=== PATIENT | female | born 2000 | race Caucasian/White ===

== ENCOUNTER 2023-08-14 15:07 | Emergency (ER) | payer BC, SELFPAY ==
--- NOTE | ~2023-08-14 | CT_ITS ---
EXAMINATION: CT abdomen pelvis w con DATE: 08/14/2023 16:44 INDICATION: Right lower quadrant abdominal pain, nausea and intermittent fever TECHNIQUE: Computed tomography (CT) of the abdomen and pelvis was performed with 100 mL Omnipaque-350 intravenous contrast. Automated exposure control and iterative reconstruction technique were employe d. The dose-length product was 286.89 mGy-cm. COMPARISON: None FINDINGS: Lung bases are clear. Visualized inferior heart appears normal. No pericardial or pleural effusion. L iver, gallbladder, pancreas, left kidney and bilateral adrenal glands are normal. There is urothelial enhancement at the right renal pelvis with few ill-defined regions of decreased cortical enhancement scattered throughout the right kidney consistent with ascending urinary tract infection and pyelonep hritis. A few splenic calcific lesions consistent with old granulomatous disease. Bowels including th e appendix are normal. There is diffuse mild bladder wall thickening which could be seen with cystiti s. T-shaped IUD in expected position within the retroverted, retroflexed uterus. 2.7 cm right adnexal cyst/follicle. Left adnexa is unremarkable. Small amount of likely physiologic free fluid in the cul -de-sac. No abscess or free intraperitoneal gas. Mild lumbar levoscoliosis with mild spondylosis. IMPRESSION: 1. Findings consistent with cystitis and right-sided ascending urinary tract infection with right humberto lonephritis. Correlate with urinalysis. 2. IUD in expected position. 3. 2.7 cm right adnexal cyst/follicle with small amount of likely physiologic free fluid in the cul-d e-sac. Reviewed, dictated and finalized at location A. AR[facility] [employer]ER IMPRESSION: 1. Findings consistent with cystitis and right-sided ascending urinary tract in fection with right pyelonephritis. Correlate with urinalysis. 2. IUD in expected position. 3. 2.7 cm right adnexal cyst/follicle with small amount of likely physiologic f ree fluid in the cul-de-sac.
[2023-08-14 15:09] VITALS: BP 119/64; PULSE 125; RESP 20; TEMP 38.1; O2SAT 99
--- NOTE | 2023-08-14 15:29 | ED.GENADULT ---
HPI - General Adult General Chief complaint: Abdominal Pain Stated complaint: abd pain Time Seen by Provider: 08/14/23 15:14 Source: patient Mode of arrival: ambulatory Limitations: no limitations History of Present Illness HPI narrative: This is a 23 year old female Who presents to the ED from urgent care with concern for right lower quadrant pain intermittently x3 days and worse today. Reports the pain seems to be primarily in the right lower quadrant and will radiate to the right flank occasion. Denies urinary symptoms or vaginal symptoms. does endorse nausea but denies vomiting. Denies any concern for STDs. Denies any abdominal surgical history. Denies chest pain, shortness of breath, cough, problems with bowel movements. Related Data Allergies Allergy/AdvReac Type Severity Reaction Status Date / Time No Known Allergies Allergy Verified 08/14/23 15:13 Review of Systems Review of Systems: All systems as dictated in HPI Exam Narrative: GENERAL: Well-appearing, well-nourished, and in no acute distress. HEAD: Normocephalic, atraumatic. EYES: PERRLA and EOMI. ENT: Nares clear, no rhinorrhea or epistaxis. Mucous membranes moist. Oropharynx without tonsillar hypertrophy exudate or other lesions. NECK: Supple. No adenopathy or masses. CHEST: No respiratory distress. Clear to auscultation. No wheezes rales or rhonchi HEART: tachycardic in the low 120s. Regular. No murmur heard. Normal peripheral pulses. ABDOMEN: Focal right lower quadrant tenderness. Mild guarding. Soft, nondistended, normal active bowel sounds. Negative rebound. Negative Michaels sign. MSK: Normal range of motion. No edema. SKIN: Warm, dry, no rash. NEURO: Alert and oriented x3. No focal deficits. PSYCH: Normal mood and affect. Course Course Emergency Course: re-evaluation 1700: Feeling much improved. Vitals have normalized. Vital Signs Vital signs: Vital Signs Temperature 100.6 F H 08/14/23 15:09 Pulse Rate 125 H 08/14/23 15:09 Respiratory Rate 20 08/14/23 15:09 Blood Pressure 119/64 08/14/23 15:09 Pulse Oximetry 99 08/14/23 15:09 Oxygen Delivery Room Air 08/14/23 15:09 Temperature 98.8 F 08/14/23 17:30 Pulse Rate 78 08/14/23 17:30 Respiratory Rate 16 08/14/23 17:30 Blood Pressure 118/68 08/14/23 17:30 Pulse Oximetry 100 08/14/23 17:30 Oxygen Delivery Room Air 08/14/23 15:09 Medical Decision Making MDM Narrative Medical decision making narrative: this is a 23-year-old female who presents to the ED with chief complaint Right lower quadrant pain and radiating from the right flank. Vitals show initial tachycardia and she is febrile to 100.6. Hemodynamically stable. Exam remarkable for the above. Lab work shows a normal white count. CMP is unremarkable. Lipase and lactic acid are normal. Urinalysis revealing for nitrite positive urine with 3+ leuks, greater than 100 whites and 4+ bacteria. CT abdomen pelvis with IV contrast: 1. Findings consistent with cystitis and right-sided ascending urinary tract infection with right pyelonephritis. Correlate with urinalysis. 2. IUD in expected position. 3. 2.7 cm right adnexal cyst/follicle with small amount of likely physiologic free fluid in the cul-de-sac.. Symptoms certainly consistent with UTI, right-sided pyelonephritis. She improved greatly with IV fluids, antiemetics and pain meds here. Rocephin was given here in the department. She is stable for discharge home, Tolerating PO. Prescription for cephalexin given. Prescriptions for [place] and Zofran given as well. Pt will be discharged in stable condition. Return precautions given and supportive measures discussed. Pt is understanding and agreeable with plan for discharge and follow-up with PCP. Vital Signs Vital Signs: Vital Signs Temperature 100.6 F H 08/14/23 15:09 Pulse Rate 125 H 08/14/23 15:09 Respiratory Rate 20 08/14/23 15:09 Blood Pressure
[2023-08-14] MEDS: ONDANSETRON INJ 4 MG/2 ML VIAL IV PUSH (15:56)
[2023-08-14] MEDS: MORPHINE SULFATE (*CRX) 4 MG/ML INJ IV PUSH (15:56)
[2023-08-14] MEDS: SODIUM CHLORIDE 0.9% IV 1,000 ML 999 ML IV CONT ×2 (15:57)
[2023-08-14 15:58] LABS: Basophils Percent Auto 0.3 % (0.2-1.2); Hematocrit 39.9 % (37.0-47.0); Hemoglobin 12.8 g/dL (12.0-15.0); Immature Granulocyte Absolute 0.01 K/mm3 (0.00-0.031); Immature Granulocyte Percent A 0.2 % (0-0.5); Lymphocytes Absolute Auto 0.75 K/mm3 (0.9-3.2); Lymphocytes Percent Auto 12.8 % (18.3-44.2); Mean Corpuscular HGB Conc 32.1 g/dl (32-36); Mean Corpuscular Hemoglobin 29.1 pg (26-34); Mean Corpuscular Volume 90.7 fl (80-100); Mean Platelet Volume 8.9 fl (7.4-10.4); Monocytes Absolute Auto 0.6 K/mm3 (0.1-0.6); Monocytes Percent Auto 9.9 % (2.6-8.5); Neutrophils Absolute Auto 4.5 K/mm3 (1.3-6.7); Neutrophils Percent Auto 76.8 % (45.5-73.1); Platelet Count Result 211 k/mm3 (150-375); Red Cell Distribution Width 12.2 % (11.5-14.5); White Blood Count 5.9 K/mm3 (4.5-10.0)
[2023-08-14 16:04] LABS: Appearance Urine Turbid (Clear); Bacteria Urine 4+ /hpf; Bilirubin Urine Negative (Negative); Blood Urine 2+ (Negative); Color Urine Yellow (Yellow); Glucose Urine UA Negative (Negative); Ketones Urine 2+ mg/dL (Negative); Leukocyte Esterase Ur 3+ LEU/UL (Negative); Nitrate Urine Positive (Negative); Non Pathogenic Casts 0-2; Protein Urine 2+ mg/dL (Negative); Specific Grav Ur 1.014 (1.001-1.035); Squamous Epithelial Cell Urine None seen /hpf (Few); Urobilinogen Urine 0.2 mg/dL (<2.0); WBC Urine >100 /hpf; pH Urine 5.5 (5.0-9.0)
[2023-08-14 16:07] VITALS: BP 126/78; PULSE 74; RESP 16; O2SAT 100
[2023-08-14 16:08] LABS: INR 1.1; Prothrombin Time 14.3 Seconds (11.1-14.7)
[2023-08-14 16:12] LABS: Add Urine Microscopic? YES
[2023-08-14 16:13] LABS: Alanine Aminotransferase 10 U/L (6-35); Albumin Level 4.3 g/dL (3.5-5.1); Alkaline Phosphatase 53 U/L (38-126); Anion Gap 8 mmol/L (8-16); Aspartate Amino Transferase 19 U/L (14-36); Bilirubin,Total 1.6 mg/dL (0.2-1.3); Blood Urea Nitrogen 10 mg/dL (7-17); Carbon Dioxide 23 mmol/L (22-30); Chloride 105 mmol/L (98-107); Estimated CRCL calculation 79 ml/min; Estimated Glomerular Filt Rate > 60; Glucose 95 mg/dL (65-110); Lipase 43 U/L (23-300); Potassium 3.9 mmol/L (3.4-5.0); Sodium 136 mmol/L (137-145)
[2023-08-14 16:14] LABS: Lactic Acid Reflex 0.7 mmol/L (0.7-2.0)
[2023-08-14 16:30] VITALS: BP 127/76; PULSE 80; TEMP 37.6; O2SAT 100
[2023-08-14 17:30] VITALS: BP 118/68; PULSE 78; RESP 16; TEMP 37.1; O2SAT 100
[2023-08-14] MEDS: KETOROLAC 15 MG/ML VIAL (*BKC) IV PUSH (17:35)
== END 2023-08-14 17:58 | disposition home or self-care (01) ==
PROVIDERS: Emergency Provider Physician Assistant
DX: N39.0 Urinary tract infection, site not specified (principal); Z97.5 Presence of (intrauterine) contraceptive device; N94.89 Other specified conditions associated with female genital organs and menstrual cycle
CPT/HCPCS: 36415; 74177; 80053; 81001; 81025; 83605; 83690; 85025; 85610; 85730; 87077; 87086; 87186; 96361; 96365; 96375; 99284; J0696; J1885; J2270; J2405; J7030; Q9967